=== PATIENT | female | born 1955 | race American Indian/Alaskan Native ===

== ENCOUNTER 2019-01-10 15:01 | Emergency (ER) | payer MEDICARE ==
--- NOTE | 2019-01-10 15:11 | Emergency Department Report ---
Blank Doc - Documentation Documentation: This is a 63-year-old female that presents with chest pain in the left with ra diation to left back. Stated has a syncopal episode today with hemoptysis. This initial assessment/diagnostic orders/clinical plan/treatment(s) is/are subject to change based on patient's health status, clinical progression and re- assessment by fellow clinical providers in the ED. Further treatment and workup at subsequent clinical providers discretion. Patient/guardians urged not to elope from the ED as their condition may be serious if not clinically assessed and managed. Initial orders include: 1- Patient sent to MAIN ED for further evaluation and treatment 2- labs 3- EKG 4- CXR
[2019-01-10 15:57] LABS: Basophils % (Auto) 0.6 % (0.0-1.8); Eosinophils # (Auto) 0.2 K/mm3 (0.0-0.4); Eosinophils % (Auto) 3.8 % (0.0-4.3); Hematocrit 37.9 % (30.3-42.9); Hemoglobin 12.8 gm/dl (10.1-14.3); Lymphocytes # (Auto) 1.3 K/mm3 (1.2-5.4); Lymphocytes % (Auto) 21.6 % (13.4-35.0); Mean Corpuscular HGB Conc 34 % (30-34); Mean Corpuscular Volume 89 fl (79-97); Monocytes # (Auto) 0.7 K/mm3 (0.0-0.8); Monocytes % (Auto) 11.5 % (0.0-7.3); Platelet Count 232 K/mm3 (140-440); Red Blood Count 4.25 M/mm3 (3.65-5.03); Red Cell Distribution Width 14.3 % (13.2-15.2)
[2019-01-10 16:07] LABS: INR 0.95 (0.87-1.13)
[2019-01-10 16:21] LABS: Alanine Aminotransferase 15 units/L (7-56); Albumin 4.1 g/dL (3.9-5); BUN/Creatinine Ratio 16; Blood Urea Nitrogen 42 mg/dL (7-17); Calcium 10.1 mg/dL (8.4-10.2); Hemolysis Index 11
--- NOTE | 2019-01-10 16:26 | XRay Report ---
PROCEDURE: XR CHEST ROUTINE 2V TECHNIQUE: PA and lateral chest radiographs were obtained. HISTORY: Chest Pain COMPARISONS: None currently available. FINDINGS: Cardiac silhouette is within normal limits. There is no effusion. There is no pneumothorax. There is no consolidation. There are no suspicious osseous lesions. IMPRESSION: * No acute cardiopulmonary findings. This document is electronically signed by Juni Albarado MD., Jan 10 2019 04:24:50 PM ET
[2019-01-10] MEDS ORDERED: MORPHINE IV ONE (16:31)
[2019-01-10] MEDS ORDERED: NACL 0.9% 500 ML 500 ML IV ONE ×2 (16:31→22:24)
[2019-01-10] MEDS ORDERED: PEPCID IV ONE (16:31)
[2019-01-10] MEDS ORDERED: ZOFRAN IV ONE (16:31)
--- NOTE | 2019-01-10 16:34 | Emergency Department Report ---
ED General Adult HPI - General Chief complaint: Chest Pain Stated complaint: PASSED OUT/CHEST PAIN/COUGHING Time Seen by Provider: 01/10/19 15:10 Source: patient, EMS (ems notes not available at time of chart dictation), RN notes reviewed Mode of arrival: Stretcher Limitations: No Limitations - History of Present Illness Initial comments: This is a 63-year-old female. The patient is not known to this provider previously. She typically follows with [facility] for her outpatient primary care. The patient recently had a gastric sleeve performed earlier on in December, at [facility], Dr. Ovi George The patient reports having cardiac clearance prior to this test, it indicates that she had a normal stress test. She also reportedly has a history of stroke and hypertension. The patient presents to the emergency room today with a complaint of nausea, vomiting, inability to tolerate liquid feeds, was of consciousness 2, today, af ter defecation, chest wall pain with coughing, possibly coughing up blood, no vomiting blood, no defecating blood. The patient reports that she passed out 5 days postoperatively, but did not seek medical care. She reports that she has been having difficulty tolerating liquid feeds. She reports that her chest wall pain increases with coughing, and does not radiate anywhere. She is not currently having abdominal pain. She is mildly nauseous. She feels fatigued and weak. -: Sudden Location: back Severity scale (0 -10): 6 Consistency: intermittent Improves with: other Worsens with: other - Related Data Allergies Allergy/AdvReac Type Severity Reaction Status Date / Time lisinopril Allergy Angioedema Verified 01/10/19 15:11 ED Review of Systems ROS: Stated complaint: PASSED OUT/CHEST PAIN/COUGHING Other details as noted in HPI Constitutional: malaise, weakness Eyes: denies: vision change ENT: congestion Respiratory: cough Cardiovascular: chest pain Gastrointestinal: nausea, vomiting Genitourinary: denies: dysuria Musculoskeletal: arthralgia Skin: denies: lesions Neurological: weakness Psychiatric: anxiety ED Past Medical Hx - Past Medical History Hx Hypertension: Yes Hx CVA: Yes (2010) - Surgical History Additional Surgical History: gastric sleeve- 12/30 - Social History Smoking Status: Never Smoker Substance Use Type: None ED Physical Exam - General Limitations: No Limitations General appearance: alert, in no apparent distress - Head Head exam: Present: atraumatic, normocephalic - Eye Eye exam: Present: normal appearance, EOMI, other (visual acuity intact to finger counting, color perception, reading at a close distance). Absent: nystagmus - ENT ENT exam: Present: normal exam, normal orophraynx, mucous membranes moist, normal external ear exam - Neck Neck exam: Present: normal inspection, full ROM. Absent: tenderness, meningismus - Respiratory Respiratory exam: Present: normal lung sounds bilaterally. Absent: respiratory distress - Cardiovascular Cardiovascular Exam: Present: regular rate, normal rhythm, normal heart sounds. Absent: bradycardia, tachycardia, irregular rhythm, systolic murmur, diastolic murmur, rubs, gallop - GI/Abdominal GI/Abdominal exam: Present: soft. Absent: distended, tenderness, guarding, rebound, rigid, pulsatile mass - Extremities Exam Extremities exam: Present: normal inspection, full ROM, pedal edema, other (2+ pulses noted in the bilateral upper, lower extremities. Compartments soft. No long bony tenderness. The pelvis is stable.). Absent: calf tenderness - Back Exam Back exam: Present: normal inspection, full ROM. Absent: tenderness, CVA tenderness (R), CVA tenderness (L), paraspinal tenderness, vertebral tenderness - Neurological Exam Neurological exam: Present: alert, oriented X3, other (Extraocular movements intact. Tongue midline. No facial droop. Facial sensation intact to light touch in the V1, V2, V3 distribution bilaterally. 5 and 5 strength in 4 extremities.. Sensation is intact to light touch in 4 extremities.). Absent: motor sensory deficit - Psychiatric Psychiatric exam: Present: normal affect, normal mood - Skin Skin exam: Present: warm, dry, intact, normal color. Absent: rash ED Course Vital Signs 01/10/19 01/10/19 01/10/19 15:11 15:26 15:29 Temperature 97.7 F Pulse Rate 64 Respiratory 16 16 Rate Blood Pressure 114/61 Blood Pressure [Left] O2 Sat by Pulse 93 95 93 Oximetry 01/10/19 01/10/19 01/10/19 15:31 16:01 16:31 Temperature Pulse Rate 60 Respiratory 15 Rate Blood Pressure 98/56 123/61 98/56 Blood Pressure [Left] O2 Sat by Pulse 98 94 98 Oximetry 01/10/19 01/10/19 01/10/19 17:00 17:39 18:00 Temperature Pulse Rate 67 Respiratory 18 Rate Blood Pressure 106/60 123/61 128/67 Blood Pressure [Left] O2 Sat by Pulse 98 92 Oximetry 01/10/19 01/10/19 01/10/19 18:49 19:00 19:15 Temperature Pulse Rate 66 67 Respiratory 21 20 Rate Blood Pressure 101/64 125/54 125/54 Blood Pressure [Left] O2 Sat by Pulse 96 90 85 Oximetry 01/10/19 01/10/19 01/10/19 19:45 20:01 20:15 Temperature Pulse Rate 82 64 Respiratory 27 H 19 Rate Blood Pressure 125/54 101/64 125/54 Blood Pressure [Left] O2 Sat by Pulse 95 90 92 Oximetry 01/10/19 01/10/19 01/10/19 20:31 20:45 21:00 Temperature Pulse Rate 60 64 62 Respiratory 12 15 20 Rate Blood Pressure 125/54 122/47 131/69 Blood Pressure [Left] O2 Sat by Pulse 93 96 Oximetry 01/10/19 21:02 Temperature 98.2 F Pulse Rate 61 Respiratory 20 Rate Blood Pressure Blood Pressure 131/69 [Left] O2 Sat by Pulse 96 Oximetry - Reevaluation(s) Reevaluation #1: 01/10/19 17:58 Differential diagnosis, including are not limited to: Orthostasis, dehydration, vagal event, structural cardiac disease, acute coronary syndrome, pulmonary embolus, complications of bariatric surgery Assessment and plan: 63-year-old female with complaint of nausea, vomiting, syncope 2, found to be hypoxic, on room air, when I am interviewing her; patient is noted to desaturate to 90% during her history and physical. With deep inspiration of vital capacity breaths, her O2 saturation improved. Her abdomen is soft and benign. Laboratory studies have indicated acute renal insufficiency. EKG abnormal without prior for comparison. I contacted her private bariatric surgeon, Dr. Subhash Dexter He is amenable to excepting her as a transfer, but indicates that this objective diagnostic should be obtained, to risk stratify the patient for pulmonary embolism, and to obtain CT scan of the abdomen and pelvis, and chest at my discretion with oral contrast, to assess for postsurgical complications. I have discussed this with the patient and family, who have verbalized understanding. She will be given IV fluids. Reevaluation #2: 01/10/19 20:30 CT scan of the brain is negative for acute disease. Nuclear medicine study is low probability for pulmonary embolus. Reevaluation #3: 01/10/19 22:18 CT scan of the chest, abdomen, pelvis suggests gastritis, and dilated esophagus with contrast, did not pass through the stomach, likely stricture at the gastroesophageal junction. Contacted the patient's bariatric surgeon, Dr. Subhash Dexter, who recommends 10 mg of intravenous Decadron. Given that the patient is likely experiencing postoperative complications with renal involvement, given that her bariatric surgeon is willing to see her in consultation, and given at this facility typically does not have bariatric surgery available for consultation, it is my opinion that the patient is best served to be transferred back to her initial operative facility, where her bariatric surgeon can follow in consultation, and advised to medical team on how to manage her. Reevaluation #4: 01/10/19 22:32 Dr Chris Powell accepts to internal medicine service ED Medical Decision Making - Lab Data Result diagrams: 01/10/19 15:19 01/10/19 15:19 Vital Signs 01/10/19 01/10/19 01/10/19 15:11 15:26 15:29 Temperature 97.7 F Pulse Rate 64 Respiratory 16 16 Rate Blood Pressure 114/61 O2 Sat by Pulse 93 95 93 Oximetry 01/10/19 01/10/19 01/10/19 15:31 16:01 16:31 Temperature Pulse Rate 60 Respiratory 15 Rate Blood Pressure 98/56 123/61 98/56 O2 Sat by Pulse 98 94 98 Oximetry 01/10/19 17:00 Temperature Pulse Rate Respiratory Rate Blood Pressure 106/60 O2 Sat by Pulse 98 Oximetry Lab Results 01/10/19 01/10/19 01/10/19 Range/Units 15:19 15:19 15:19 WBC 5.9 (4.5-11.0) K/mm3 RBC 4.25 (3.65-5.03) M/mm3 Hgb 12.8 (10.1-14.3) gm/dl Hct 37.9 (30.3-42.9) % MCV 89 (79-97) fl MCH 30 (28-32) pg MCHC 34 (30-34) % RDW 14.3 (13.2-15.2) % Plt Count 232 (140-440) K/mm3 Lymph % (Auto) 21.6 (13.4-35.0) % Haskell % (Auto) 11.5 H (0.0-7.3) % Eos % (Auto) 3.8 (0.0-4.3) % Baso % (Auto) 0.6 (0.0-1.8) % Lymph # 1.3 (1.2-5.4) K/mm3 Haskell # 0.7 (0.0-0.8) K/mm3 Eos # 0.2 (0.0-0.4) K/mm3 Baso # 0.0 (0.0-0.1) K/mm3 Seg Neutrophils % 62.5 (40.0-70.0) % Seg Neutrophils # 3.7 (1.8-7.7) K/mm3 PT 13.2 (12.2-14.9) Sec. INR 0.95 (0.87-1.13) APTT 36.0 (24.2-36.6) Sec. D-Dimer 253.02 H (0-234) ng/mlDDU Sodium 142 (137-145) mmol/L Potassium 3.6 (3.6-5.0) mmol/L Chloride 100.5 (98-107) mmol/L Carbon Dioxide 25 (22-30) mmol/L Anion Gap 20 mmol/L BUN 42 H (7-17) mg/dL Creatinine 2.7 H (0.7-1.2) mg/dL Estimated GFR 22 ml/min BUN/Creatinine Ratio 16 % Glucose 103 H (65-100) mg/dL Lactic Acid (0.7-2.0) mmol/L Calcium 10.1 (8.4-10.2) mg/dL Magnesium (1.7-2.3) mg/dL Total Bilirubin 0.50 (0.1-1.2) mg/dL AST 17 (5-40) units/L ALT 15 (7-56) units/L Alkaline Phosphatase 68 (35-129) units/L Total Creatine Kinase (30-135) units/L Troponin T < 0.010 (0.00-0.029) ng/mL Total Protein 8.5 H (6.3-8.2) g/dL Albumin 4.1 (3.9-5) g/dL Albumin/Globulin Ratio 0.9 % 01/10/19 01/10/19 Range/Units 16:47 16:47 WBC (4.5-11.0) K/mm3 RBC (3.65-5.03) M/mm3 Hgb (10.1-14.3) gm/dl Hct (30.3-42.9) % MCV (79-97) fl MCH (28-32) pg MCHC (30-34) % RDW (13.2-15.2) % Plt Count (140-440) K/mm3 Lymph % (Auto) (13.4-35.0) % Haskell % (Auto) (0.0-7.3) % Eos % (Auto) (0.0-4.3) % Baso % (Auto) (0.0-1.8) % Lymph # (1.2-5.4) K/mm3 Haskell # (0.0-0.8) K/mm3 Eos # (0.0-0.4) K/mm3 Baso # (0.0-0.1) K/mm3 Seg Neutrophils % (40.0-70.0) % Seg Neutrophils # (1.8-7.7) K/mm3 PT (12.2-14.9) Sec. INR (0.87-1.13) APTT (24.2-36.6) Sec. D-Dimer (0-234) ng/mlDDU Sodium (137-145) mmol/L Potassium (3.6-5.0) mmol/L Chloride (98-107) mmol/L Carbon Dioxide (22-30) mmol/L Anion Gap mmol/L BUN (7-17) mg/dL Creatinine (0.7-1.2) mg/dL Estimated GFR ml/min BUN/Creatinine Ratio % Glucose (65-100) mg/dL Lactic Acid 1.20 (0.7-2.0) mmol/L Calcium (8.4-10.2) mg/dL Magnesium 2.30 (1.7-2.3) mg/dL Total Bilirubin (0.1-1.2) mg/dL AST (5-40) units/L ALT (7-56) units/L Alkaline Phosphatase (35-129) units/L Total Creatine Kinase 197 H (30-135) units/L Troponin T (0.00-0.029) ng/mL Total Protein (6.3-8.2) g/dL Albumin (3.9-5) g/dL Albumin/Globulin Ratio % - EKG Data -: EKG Interpreted by Mo EKG shows normal: sinus rhythm Rate: normal - EKG Data 01/10/19 18:09 This is a normal sinus rhythm, 63 bpm, normal axis, left ventricular hypertrophy, T-wave inversion V2, T-wave inversion in V3, nonspecific ST abnormalities in lateral leads, this is an abnormal EKG. This EKG is not consistent with ST elevation myocardial infarction. There is no prior EKG available for comparison - Radiology Data Radiology results: report reviewed, image reviewed Print Report Referring Physician: PAT ROSARIO Patient Name: KEN WOODS Date of : 1955 Sex: Female Report Date: 2019-01-10 Report Status: [place] [address] XRay Report Signed Patient: KEN WOODS V MR#: [id number] : 1955 Acct:[id number] Age/Sex: 63 / F ADM Date: 01/10/19 Loc: ED Attending Dr: Ordering Physician: PAT ROSARIO NP Date of Service: 01/10/19 Procedure(s): XR chest routine 2V Accession Number(s): [id number] cc: PAT ROSARIO NP Fluoro Time In Minutes: PROCEDURE: XR CHEST ROUTINE 2V TECHNIQUE: PA and lateral chest radiographs were obtained. HISTORY: Chest Pain COMPARISONS: None currently available. FINDINGS: Cardiac silhouette is within normal limits. There is no effusion. There is no pneumothorax. There is no consolidation. There are no suspicious osseous lesions. IMPRESSION: * No acute cardiopulmonary findings. This document is electronically signed by Juni De La Cruz MD., Jan 10 2019 04:24:50 PM ET Transcribed By: TYM Dictated By: JUNI DE LA CRUZ MD Electronically Authenticated By: JUNI DE LA CRUZ MD Signed Date/Time: 01/10/19 1626 Print Report Referring Physician: LEO SALDANA Patient Name: KEN WOODS Date of : 1955 Sex: Female Report Date: 2019-01-10 Report Status: Finalized Findings [facility] [address] [place] [address] Cat Scan Report Signed Patient: KEN WOODS V MR#: [id number] : 1955 Acct:[id number] Age/Sex: 63 / F ADM Date: 01/10/19 Loc: ED Attending Dr: Ordering Physician: LEO SALDANA MD Date of Service: 01/10/19 Procedure(s): CT chest wo con Accession Number(s): [id number] cc: LEO SALDANA MD PROCEDURE: CT CHEST WO CON TECHNIQUE: HISTORY: CP N/V COMPARISONS: FINDINGS: No evidence for mediastinal mass or pathologic lymph node enlargement The esophagus is dilated and there is contrast material throughout the esophagus. There is evidence for prior gastroesophageal surgery. Please correlate with surgical history. At the gastroesophageal junction there is narrowing likely reflecting stricture. Nonenhanced images great vessels are unremarkable. Lungs demonstrate no acute infiltrate. No pleural fluid collections seen. IMPRESSION: Evidence for prior esophageal and gastroesophageal surgery please correlate with surgical history. Dilated esophagus with contrast material present which is not passed through the stomach likely re flecting stricture at the gastroesophageal junction. This document is electronically signed by Trent Lugo MD., Jan 10 2019 09:16:45 PM ET Transcribed By: [facility] Dictated By: DARLINE LUGO MD Electronically Authenticated By: DARLINE LUGO MD Signed Date/Time: 01/10/192118 Print Report Referring Physician: LEO SALDANA Patient Name: KEN WOODS Date of : 1955 Sex: Female Report Date: 2019-01-10 Report Status: Finalized Findings [facility] [address] [place] [address] Cat Scan Report Signed Patient: KEN WOODS V MR#: [id number] : 1955 Acct:[id number] Age/Sex: 63 / F ADM Date: 01/10/19 Loc: ED Attending Dr: Ordering Physician: LEO SALDANA MD Date of Service: 01/10/19 Procedure(s): CT head/brain wo con Accession Number(s): [id number] cc: LEO SALDANA MD PROCEDURE: CT head without contrast. TECHNIQUE: Computerized tomography of the head was performed without contrast material. CT DOSE LENGTH PRODUCT: 805.4 mGycm HISTORY: Syncope, nausea and vomiting. COMPARISONS: None. FINDINGS: The v entricles are normal in size. There is probably a tiny old lacunar infarct in the left putamen. The goodman matter and white matter otherwise appear normal. There are no mass lesions. There is no intracranial hemorrhage. The calvarium appears intact. The mastoid air cells and visualized paranasal sinuses are well aerated. IMPRESSION: Normal study for age. This document is electronically signed by Leo Robledo MD., Jan 10 2019 08:08:04 PM ET Transcribed By: MRM Dictated By: LEO ROBLEDO MD Electronically Authenticated By: LEO ROBLEDO MD Signed Date/Time: 01/10/19 2009 Print Report Referring Physician: LEO SALDANA Patient Name: KEN WOODS Date of : 1955 Sex: Female Report Date: 2019-01-10 Report Status: Finalized Findings [facility] [address] [place] [address] Nuclear Medicine Report Signed Patient: KEN WOODS V MR#: [id number] : 1955 Acct:[id number] Age/Sex: 63 / F ADM Date: 01/10/19 Loc: ED Attending Dr: Ordering Physician: LEO SALDANA MD Date of Service: 01/10/19 Procedure(s): NM lung scan perf/vent Accession Number(s): [id number] cc: LEO SALDANA MD PROCEDURE: NM LUNG SCAN PERF/VENT TECHNIQUE: Nuclear ventilation/perfusion scan study performed with intravenous administration of 4.8 mCi technetium 99m MAA for perfusion study and 1.81 mCi 133 xenon for the ventilation exam HISTORY: CP N/V SYNCOPE COMPARISONS: Correlated with chest radiograph of same date FINDINGS: There is homogeneous distribution of the radiotracer on the perfusion exam. No perfusion defects observed. On ventilation study there is normal distribution and washout . IMPRESSION: Negative. No scintigraphic evidence for acute pulmonary embolus. This document is electronically signed by Trent Lugo MD., Jan 10 2019 07:34:17 PM ET Transcribed By: JDK Dictated By: DARLINE LUGO MD Electronically Authenticated By: DARLINE LUGO MD Signed Date/Time: 01/10/191935 Print Report Referring Physician: LEO SALDANA Patient Name: KEN WOODS Date of : 1955 Sex: Female Report Date: 2019-01-10 Report Status: Finalized Findings [facility] [address] [place] [address] Cat Scan Report Signed Patient: KEN WOODS V MR#: [id number] : 1955 Acct:[id number] Age/Sex: 63 / F ADM Date: 01/10/19 Loc: ED Attending Dr: Ordering Physician: LEO SALDANA MD Date of Service: 01/10/19 Procedure(s): CT abdomen pelvis wo con Accession Number(s): [id number] cc: LEO SALDANA MD PROCEDURE: CT ABDOMEN PELVIS WO CON HISTORY: ABD PAIN N/V WEASK FINDINGS: Unenhanced CT of the abdomen and pelvis was performed. The heart is normal in size. There is wall thickening of the distal esophagus, likely esophagitis. ABDOMEN: There is a gastric sleeve . There are hepatic cysts. No suspect focal hepatic lesion is seen. The spleen is normal in size at 11.7 x 4.2 cm No focal pancreatic lesion is seen There is aortic atherosclerotic change without aneurysmal dilation of the aorta. There is no small or large bowel obstruction. Pelvis: The appendix is not seen. There is no evidence of appendicitis. There is no evidence of diverticulitis. There is no adnexal mass. The urinary bladder is within normal limits. There is no free air. There are vacuum discs at T11-12, L4-5 and L5-S1. There are endplate degenerative changes at L4-5 and L5-S1 with suspected impingement of both exiting L5 nerve roots. IMPRESSION: Distended dis [place] esophagus with esophageal wall thickening consistent with esophagitis ABDOMEN: Gastric sleeve No bowel obstruction Pelvis: No evidence of diverticulitis This document is electronically signed by Jamel Casas MD., Jan 10 2019 09:24:00 PM ET Transcribed By: NAHUM Dictated By: JAMEL HORN MD Electronically Authenticated By: JAMEL CASAS MD Signed Date/Time: 01/10/198 Critical Care Time: Yes Critical care time in (mins) excluding proc time.: 35 Critical care attestation.: If time is entered above; I have spent that time in minutes in the direct care of this critically ill patient, excluding procedure time. ED Disposition Clinical Impression: Acute renal insufficiency, Dehydration, Complications of bariatric procedures, History of syncope [id number] IP Is pt being admited?: No Does the pt Need Aspirin: No Condition: Good Referrals: LOU PARIS MD [Primary Care Provider] - 3-5 Days
--- NOTE | 2019-01-10 19:36 | Nuclear Medicine Report ---
PROCEDURE: NM LUNG SCAN PERF/VENT TECHNIQUE: Nuclear ventilation/perfusion scan study performed with intravenous administration of 4.8 mCi technetium 99m MAA for perfusion study and 1.81 mCi 133 xenon for the ventilation exam HISTORY: CP N/V SYNCOPE COMPARISONS: Correlated with chest radiograph of same date FINDINGS: There is homogeneous distribution of the radiotracer on the perfusion exam. No perfusion defects obse rved. On ventilation study there is normal distribution and washout . IMPRESSION: Negative. No scintigraphic evidence for acute pulmonary embolus. This document is electronically signed by Trent Mancuso MD., Jan 10 2019 07:34:17 PM ET
[2019-01-10 20:06] LABS: Amphetamine Screen,Urine PRESUMPTIVE NEGATIVE; Benzodiazepines Screen,Urine PRESUMPTIVE NEGATIVE; Cannabinoid Screen,Urine PRESUMPTIVE NEGATIVE; Cocaine Screen,Urine PRESUMPTIVE NEGATIVE; Methadone Screen,Urine PRESUMPTIVE NEGATIVE; Opiate Screen,Urine PRESUMPTIVE NEGATIVE
--- NOTE | 2019-01-10 20:09 | Cat Scan Report ---
PROCEDURE: CT head without contrast. TECHNIQUE: Computerized tomography of the head was performed without contrast material. CT DOSE LENGTH PRODUCT: 805.4 mGycm HISTORY: Syncope, nausea and vomiting. COMPARISONS: None. FINDINGS: The ventricles are normal in size. There is probably a tiny old lacunar infarct in the left putamen. The goodman matter and white matter otherwise appear normal. There are no mass lesions. There is no intr acranial hemorrhage. The calvarium appears intact. The mastoid air cells and visualized paranasal sin uses are well aerated. IMPRESSION: Normal study for age. This document is electronically signed by Leo Ndiaye MD., Jan 10 2019 08:08:04 PM ET
--- NOTE | 2019-01-10 21:19 | Cat Scan Report ---
PROCEDURE: CT CHEST WO CON TECHNIQUE: HISTORY: CP N/V COMPARISONS: FINDINGS: No evidence for mediastinal mass or pathologic lymph node enlargement The esophagus is dilated and there is contrast material throughout the esophagus. There is evidence f or prior gastroesophageal surgery. Please correlate with surgical history. At the gastroesophageal ju nction there is narrowing likely reflecting stricture. Nonenhanced images great vessels are unremarkable. Lungs demonstrate no acute infiltrate. No pleural fluid collections seen. IMPRESSION: Evidence for prior esophageal and gastroesophageal surgery please correlate with surgical history. Di lated esophagus with contrast material present which is not passed through the stomach likely reflect ing stricture at the gastroesophageal junction. This document is electronically signed by Trent Mancuso MD., Jan 10 2019 09:16:45 PM ET
--- NOTE | 2019-01-10 21:25 | Cat Scan Report ---
PROCEDURE: CT ABDOMEN PELVIS WO CON HISTORY: ABD PAIN N/V WEASK FINDINGS: Unenhanced CT of the abdomen and pelvis was performed. The heart is normal in size. There is wall thickening of the distal esophagus, likely esophagitis. ABDOMEN: There is a gastric sleeve . There are hepatic cysts. No suspect focal hepatic lesion is seen. The spleen is normal in size at 11.7 x 4.2 cm No focal pancreatic lesion is seen There is aortic atherosclerotic change without aneurysmal dilation of the aorta. There is no small or large bowel obstruction. Pelvis: The appendix is not seen. There is no evidence of appendicitis. There is no evidence of diverticuliti s. There is no adnexal mass. The urinary bladder is within normal limits. There is no free air. There are vacuum discs at T11-12, L4-5 and L5-S1. There are endplate degenerative changes at L4-5 and L5-S1 with suspected impingement of both exiting L5 nerve roots. IMPRESSION: Distended distal esophagus with esophageal wall thickening consistent with esophagitis ABDOMEN: Gastric sleeve No bowel obstruction Pelvis: No evidence of diverticulitis This document is electronically signed by Jamel Casas MD., Jan 10 2019 09:24:00 PM ET
[2019-01-10] MEDS ORDERED: DECADRON IV ONE (22:23)
[2019-01-11 00:54] VITALS: BP 109/45
== END 2019-01-11 00:10 | disposition other institution (70) ==
LOC: ED 15:01
DX: E86.0 Dehydration (principal); N28.9 Disorder of kidney and ureter, unspecified; K95.89 Other complications of other bariatric procedure; R55 Syncope and collapse; I10 Essential (primary) hypertension; Z88.5 Allergy status to narcotic agent
CPT/HCPCS: 36415; 70450; 71046; 71250; 74176; 78582; 80053; 80307; 82140; 82550; 83735; 84484; 85025; 85379; 85610; 85730; 93005; 93010; 96374; 96375; 99291; A9540; A9558; J1100; J2270; J2405; J7040; 96361

== ENCOUNTER 2021-11-01 11:26 | Emergency (ER) | payer MEDICARE ==
[2021-11-01] MEDS ORDERED: METOCLOPRAMIDE 10 MG/2 ML INJ IV ONE (11:46)
[2021-11-01] MEDS ORDERED: SODIUM CHLORIDE 0.9% 1000 ML 1,000 ML IV ONE (11:46)
[2021-11-01 12:44] LABS: Bilirubin,Urine NEG (Negative); Blood,Urine NEG (Negative); Color,Urine Yellow (Yellow); Mucus,Urine 1+ /HPF; Urobilinogen,Urine < 2.0 mg/dL (<2.0)
[2021-11-01 13:05] LABS: Hematocrit 44.7 % (30.3-42.9); Hemoglobin 14.7 gm/dl (10.1-14.3); Mean Corpuscular HGB Conc 33 % (30-34); Mean Corpuscular Volume 96 fl (79-97); Platelet Count 112 K/mm3 (140-440); Red Blood Count 4.65 M/mm3 (3.65-5.03); Red Cell Distribution Width 13.7 % (13.2-15.2)
[2021-11-01 13:22] LABS: BUN/Creatinine Ratio 27; Blood Urea Nitrogen 30 mg/dL (7-17); Calcium 9.4 mg/dL (8.4-10.2); Hemolysis Index 19
--- NOTE | 2021-11-01 13:26 | XRay Report ---
CHEST 1 VIEW INDICATION: pain. COMPARISON: 01/10/2019 FINDINGS: Support devices: Right [id number] terminates near the cavoatrial junction. Heart: Within normal limits. Lungs/Pleura: The lungs are hyperinflated but clear. No pneumothorax. 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 IMPRESSION: No acute findings. Signer Name: Stewart White Jr, MD Signed: 11/01/2021 1:22 PM Workstation Name: [id number]
[2021-11-01 13:51] LABS: Basophils % (Manual) 0 % (0.0-1.8); Eosinophils % (Manual) 0 % (0.0-4.3); Platelet Estimate Consistent w Auto; RBC Morphology Normal; Total Cells Counted 100
--- NOTE | 2021-11-01 14:42 | Cat Scan Report ---
CT abdomen pelvis w con INDICATION / CLINICAL INFORMATION: ABDOMINAL PAIN, NO HISTORY OF SURGERY, OMNI 300 100 ML. TECHNIQUE: Axial CT imaging of abdomen and pelvis was obtained with IV contrast. Coronal and sagittal reformatte d imaging obtained and reviewed. All CT scans at this location are performed using CT dose reduction for ALARA by means of automated exposure control. COMPARISON: Prior CT, 01/10/2019 FINDINGS: CT abdomen with IV contrast demonstrates normal appearance of the spleen, pancreas, kidneys, and adre nal glands. There are several small scattered cysts scattered throughout the liver. The liver is unre markable otherwise. Gallbladder is present and without obvious pathology. No biliary dilatation. Mode rate amount of calcified plaque is present throughout the abdominal aorta but no evidence of aneurysm . Small hiatal hernia is present. CT pelvis with contrast does not demonstrate any mass, free fluid, or focal inflammatory change. Ther e is mild to moderate diverticulosis throughout the sigmoid colon but no evidence of acute inflammato ry process. The appendix is not confidently identified but I certainly do not see secondary signs to suggest appe ndicitis. The remainder of the GI tract is unremarkable. Uterus and adnexa are unremarkable. Visualized lung bases are clear. No acute significant skeletal abnormality is noted. IMPRESSION: 1. No acute finding within the abdomen or pelvis. 2. Mild to moderate diverticulosis without suggestion of diverticulitis. Signer Name: Mi Henley MD Signed: 11/01/2021 2:38 PM Workstation Name: [id number]
--- NOTE | 2021-11-01 14:56 | Emergency Department Report ---
ED Abdominal Pain HPI - General Chief Complaint: Abdominal Pain Stated Complaint: NAUSEA/VOMITING Time Seen by Provider: 11/01/21 11:42 Source: EMS Mode of arrival: Stretcher Limitations: No Limitations - History of Present Illness Initial Comments: Pt brought in by EMS with c/o N/V x3 days, pt was given 4mg of zofran by EMS -: Gradual Location: diffuse Migration to: no migration Severity scale (0 -10): 3 Quality: aching Consistency: intermittent Improves With: nothing Worsens With: nothing - Related Data Previous Rx's Medication Instructions Recorded Last Taken Type Amoxicillin/Potassium Clav 1 each PO BID #14 11/01/21 Unknown Rx [Augmentin 875-125 Tablet] Ondansetron [Zofran Odt] 4 mg PO Q8HR #14 tab.rapdis 11/01/21 Unknown Rx Allergies Allergy/AdvReac Type Severity Reaction Status Date / Time lisinopril Allergy Angioedema Verified 01/10/19 15:11 ED Review of Systems ROS: Stated complaint: NAUSEA/VOMITING Other details as noted in HPI Constitutional: denies: chills, fever Eyes: denies: eye pain, eye discharge, vision change ENT: denies: ear pain, throat pain Respiratory: denies: cough, shortness of breath, wheezing Cardiovascular: denies: chest pain, palpitations Endocrine: no symptoms reported Gastrointestinal: denies: abdominal pain, nausea, diarrhea Genitourinary: denies: urgency, dysuria, discharge Musculoskeletal: denies: back pain, joint swelling, arthralgia Skin: denies: rash, lesions Neurological: denies: headache, weakness, paresthesias Psychiatric: denies: anxiety, depression Hematological/Lymphatic: denies: easy bleeding, easy bruising ED Past Medical Hx - Past Medical History Hx Hypertension: Yes Hx CVA: Yes (2010) Hx of Cancer: Yes (breast) - Surgical History Additional Surgical History: gastric sleeve- 12/30 - Social History Smoking Status: Never Smoker Substance Use Type: None - Medications Home Medications: Home Medications Medication Instructions Recorded Confirmed Last Taken Type Amoxicillin/Potassium Clav 1 each PO BID #14 11/01/21 Unknown Rx [Augmentin 875-125 Tablet] Ondansetron [Zofran Odt] 4 mg PO Q8HR #14 tab.rapdis 11/01/21 Unknown Rx ED Physical Exam - General Limitations: No Limitations General appearance: alert, in no apparent distress - Head Head exam: Present: atraumatic, normocephalic - Eye Eye exam: Present: normal appearance - ENT ENT exam: Present: mucous membranes moist - Neck Neck exam: Present: normal inspection - Respiratory Respiratory exam: Present: normal lung sounds bilaterally. Absent: respiratory distress - Cardiovascular Cardiovascular Exam: Present: regular rate, normal rhythm. Absent: systolic murmur, diastolic murmur, rubs, gallop - GI/Abdominal GI/Abdominal exam: Present: soft, normal bowel sounds - Extremities Exam Extremities exam: Present: normal inspection - Back Exam Back exam: Present: normal inspection - Neurological Exam Neurological exam: Present: alert, oriented X3 - Psychiatric Psychiatric exam: Present: normal affect, normal mood - Skin Skin exam: Present: warm, dry, intact, normal color. Absent: rash ED Course Vital Signs 11/01/21 11/01/21 11/01/21 11:36 11:51 11:58 Temperature 98.4 F Pulse Rate 82 Respiratory 16 15 Rate Blood Pressure Blood Pressure 128/74 [Right] O2 Sat by Pulse 97 100 99 Oximetry 11/01/21 11/01/21 11/01/21 12:37 12:45 13:01 Temperature Pulse Rate Respiratory Rate Blood Pressure 138/87 171/97 181/94 Blood Pressure [Right] O2 Sat by Pulse 95 96 96 Oximetry 11/01/21 11/01/21 11/01/21 13:15 13:31 13:45 Temperature Pulse Rate Respiratory Rate Blood Pressure 156/93 162/94 174/90 Blood Pressure [Right] O2 Sat by Pulse 97 97 95 Oximetry 11/01/21 11/01/21 11/01/21 14:01 14:21 14:31 Temperature Pulse Rate Respiratory Rate Blood Pressure 155/80 155/80 180/78 Blood Pressure [Right] O2 Sat by Pulse 96 98 93 Oximetry 11/01/21 11/01/21 14:45 15:09 Temperature Pulse Rate Respiratory Rate Blood Pressure 180/95 163/85 Blood Pressure [Right] O2 Sat by Pulse 94 Oximetry ED Medical Decision Making - Lab Data Result diagrams: 11/01/21 12:44 11/01/21 12:44 Critical care attestation.: If time is entered above; I have spent that time in minutes in the direct care of this critically ill patient, excluding procedure time. ED Disposition Clinical Impression: Diverticulosis, Nausea and vomiting Disposition: HOME / SELF CARE / HOMELESS Is pt being admited?: No Does the pt Need Aspirin: No Condition: Stable Instructions: Nausea, Adult, Diverticulosis, Abdominal Pain (ED) Prescriptions: Amoxicillin/Potassium Clav [Augmentin 875-125 Tablet] 1 each PO BID #14 Ondansetron [Zofran Odt] 4 mg PO Q8HR #14 tab.rapdis Referrals: HUMA ROBERTSON MD [Primary Care Provider] - 3-5 Days
[2021-11-01 15:48] VITALS: BP 163/85
== END 2021-11-01 15:50 | disposition home or self-care (01) ==
LOC: ED 11:26
DX: K57.92 Diverticulitis of intestine, part unspecified, without perforation or abscess without bleeding (principal); R11.2 Nausea with vomiting, unspecified; I10 Essential (primary) hypertension; Z88.8 Allergy status to other drugs, medicaments and biological substances
CPT/HCPCS: 36415; 71045; 74177; 80048; 81001; 82150; 83690; 85007; 85025; 96361; 96374; 99285; J2765; J7030; Q9967; Q0162